=== PATIENT | male | born 1955 | race Caucasian/White ===

== ENCOUNTER 2020-03-09 07:34 | Day surgery (SDC) | payer OTHER ==
[2020-03-04 16:09] LABS: BASOPHILS # (AUTO) 0.1 X10'3 (0-0.2); BASOPHILS % (AUTO) 0.9 % (0-1); EOSINOPHILS # (AUTO) 0.3 X10'3 (0-0.9); EOSINOPHILS % (AUTO) 2.2 % (0-6); LYMPHOCYTES # (AUTO) 2.7 X10'3 (1.1-4.8); LYMPHOCYTES % (AUTO) 23.1 % (21-51); MEAN CORPUSCULAR HEMOGLOBIN 30.8 PG (27.0-31.0); MEAN CORPUSCULAR HGB CONC 33.7 g/dL (33.0-36.5); MEAN CORPUSCULAR VOLUME 91.4 FL (78-98); MEAN PLATELET VOLUME 8.7 FL (7.4-10.4); MONOCYTES # (AUTO) 1.2 X10'3 (0-0.9); MONOCYTES % (AUTO) 10.1 % (2-12); NEUTROPHILS # (AUTO) 7.3 X10'3 (1.8-7.7); NEUTROPHILS % (AUTO) 63.7 % (42-75); PRE OP HEMATOCRIT 47.1 % (42.0-52.0); PRE OP HEMOGLOBIN 15.9 g/dL (14.0-17.9); PRE OP PLATELET COUNT 215 X10'3 (140-440); RED BLOOD COUNT 5.15 X10'6 (4.70-6.10); RED CELL DISTRIBUTION WIDTH 13.1 % (11.5-14.5)
[2020-03-04 16:23] LABS: ALBUMIN 3.9 G/DL (3.4-5.0); ALBUMIN/GLOBULIN RATIO 1.3 (1.1-1.5); ALKALINE PHOSPHATASE 72 IU/L (46-116); BLOOD UREA NITROGEN 24 MG/DL (7-18); BUN/CREATININE RATIO 19.8 (5.4-32.0); CALCIUM 8.8 MG/DL (8.5-10.1); CHLORIDE 107 MMOL/L (99-107); CREATININE 1.21 MG/DL (0.60-1.10); PRE OP ALT 38 U/L (30-65); PRE OP ANION GAP 10 (8-16); PRE OP AST 24 U/L (10-37); PRE OP BILIRUB, TOTAL 0.5 MG/DL (0.0-1.0); PRE OP GLUCOSE 117 MG/DL (70-104); PRE OP POTASSIUM 3.9 MMOL/L (3.4-5.1); PRE OP SODIUM 141 MMOL/L (135-145); TOTAL CARBON DIOXIDE 23.7 MMOL/L (24-32); TOTAL PROTEIN 6.8 G/DL (6.4-8.2); eGFR 61 ML/MIN
[2020-03-09] VITALS (13 sets, daily range): BP systolic 138–167; BP diastolic 78–100
[~2020-03-09] VITALS: Ht 172.7 cm; Wt 94.0 kg
[~2020-03-09 07:34] MED LIST: MESSAGE TO NURSING PO ONE; NAPR220T67 PO; cefazolin/dext.iso 2gm/50ml 50 ML IV ONE; famotidine 20mg tablet PO ONE; ringers solution, lacted 1,000 ML IV SCH; vancomycin 1,500 MG in NS 300ml IV soln IV ONE
[2020-03-09] MEDS ORDERED: BUPIVAcaine/PF 2.5 mg/ml (0.25%) 30ml vial ONE (10:10)
[2020-03-09] MEDS ORDERED: fentaNYL/PF 50MCG/1 ML 2ML syringe ONE (10:46)
[2020-03-09] MEDS ORDERED: midazolam 2 mg/2 ml injection ONE ×2 (10:46)
[2020-03-09] MEDS ORDERED: cloNIDine hcl/PF 100mcg/ml inj ONE (10:47)
[2020-03-09] MEDS ORDERED: sevoflurane 250ml liquid IH ONE (10:47)
[2020-03-09] MEDS ORDERED: ROPIVAcaine 0.5% (5mg/ml) 30ml vial ONE (10:49)
[2020-03-09] MEDS ORDERED: propofol inj 20 ML IV ONE (10:49)
--- NOTE | 2020-03-09 11:55 | NUR ---
Received from OR via , accompanied by Anesthesiologist DR ENRIQUEZ and report given by Anesthesiolgist. PT WAKES TO VOICE, SKIN WARM AND PINK, RIGHT UE ISLAND DRESSING CD, SLING IN PLACE, NO C/O PAIN, PIV LEFT AC 20G PATENT WITH LR 100ML/HR.
--- NOTE | 2020-03-09 13:45 | NUR ---
PT MEETS DISCHARGE CRITERIA. VSS, IV REMOVED, UP TO VOID PRIOR TO DISCHARGE, RIGHT UE NO C/O PAIN, ABLE TO M0VE FINGERS AND HAS GOOD SENSATION, DISCHARGE INSTRUCTIONS REVIEWED WITH PT.
--- NOTE | 2020-03-09 13:45 | NUR ---
PT'S DISCHARGE INSTRUCTIONS, GLASSES AND CELL PHONE WENT HOME WITH HIM IN HIS PT BELONGING BAG.
== END 2020-03-09 13:45 | disposition home or self-care (01) ==
LOC: PAS 07:34
PROVIDERS: ATTEND Orthopaedic Surgery
DX: S42.021A Displaced fracture of shaft of right clavicle, initial encounter for closed fracture (principal); G89.18 Other acute postprocedural pain; E66.9 Obesity, unspecified; Z68.31 Body mass index [BMI] 31.0-31.9, adult; Z96.652 Presence of left artificial knee joint; Z98.890 Other specified postprocedural states; Z79.899 Other long term (current) drug therapy; Z20.828 Contact with and (suspected) exposure to other viral communicable diseases; W19.XXXA Unspecified fall, initial encounter; Y93.02 Activity, running; Y92.89 Other specified places as the place of occurrence of the external cause; Y99.8 Other external cause status
CPT/HCPCS: 23515; 36415; 64415; 73000; 76000; 76942; 80053; 82948; 85025; 87635; 93005; C1713; J0735; J2250; J2704; J3010; J3370; J3490; J7040; A4565; A4618; A7000; J2795; J7120